=== PATIENT | female | born 1980 | race Caucasian/White ===

== ENCOUNTER 2017-10-19 19:57 | Inpatient (IN) | payer MEDICAID ==
[~2017-10-19] VITALS: Ht 162.6 cm; Wt 78.0 kg
[2017-10-19] MEDS ORDERED: LACTATED RINGER'S 1000 ML INJ 1,000 ML IV PRN (20:06)
[2017-10-19] MEDS ORDERED: MISOPROSTOL 100 MCG TAB VAGINAL PRN (20:15)
[2017-10-19] MEDS ORDERED: MINERAL OIL 10 ML VIAL TOPICAL PRN (20:15)
[2017-10-19] MEDS ORDERED: LIDOCAINE HCL 1% 50 ML VIAL INFIL PRN (20:15)
[2017-10-19] MEDS ORDERED: OXYTOCIN 30 UNITS-500ML PREMIX 500 ML IV ONE (20:15)
[2017-10-19] MEDS ORDERED: SODIUM CHLORIDE 0.9% FLUSH 10 ML FLUSH IV FLUSH PRN (20:15)
[2017-10-19] MEDS ORDERED: SODIUM CHLORID 0.9% 500 ML INJ 500 ML IV PRN (20:15)
[2017-10-19] MEDS ORDERED: CITRIC ACID-SODIUM CITRATE LIQ 30 ML UDC PO SCH (20:15)
[2017-10-19] MEDS ORDERED: LIDOCAINE HCL 1% 50 ML VIAL I-DERMAL PRN (20:15)
--- NOTE | 2017-10-19 20:21 | HHI.PR ---
ANALOG CIRCUIT DESIGNER Note Note Note placed from home, did not evaluate pt face to face, H&P dictated and pending traveling repair accountant S: N/A O: VS: BP 116/74, P 77, RR 18 , T 98.3 FHTs: 150s moderate variability, no decels, positive acceleration [place]: occasional contractions, lots of artifacts A/P 37 yo at 41w1d by L/15 here for IOL for late term gestation 1. IUP: Cat 1 tracing. - GBS pos and cephalic at most recent outpt visit. - Clinical EFW 7.5-8lbs, EFW (09/20) = 3003g (61%) - Posterior placenta. - male fetus. 2. IOL: For dates, BS unfavorable in the office, nursing to PV 25mcg miso q4h, Allow to eat if cat 1 after placement 3. IUGR: based on AC of 2% on 09/22. UA dop have been elevated at time as an outpatient but was UL of normal on 10/11. Had been receiving serial growths due to peripheral cord insertion and the IUGR was found. 4. GBS pos: severe PCN allergy, no susceptibilities done, will begin Vanc later in labor. 5. AMA: NIPS negative, normal AU. 6. Tobacco use: has been cutting down in Elan Ladd MD Oct 19, 2017 20:21
[2017-10-19] MEDS ORDERED: SODIUM CHLOR 0.9% 1000 ML INJ 1,000 ML IV PRN (20:26)
[2017-10-19] MEDS: SODIUM CHLORIDE 0.9% FLUSH 10 ML FLUSH IV FLUSH SCH (21:00)
[2017-10-19] MEDS: LACTATED RINGER'S 1000 ML INJ 1,000 ML IV SCH (21:00)
[2017-10-19 22:03] LABS: AUTOMATED NEUTROPHIL # 7.9 TH/MM3 (1.8-7.7); BASOPHIL % 0.4 % (0.0-2.0); EOSINOPHIL # 0.2 TH/MM3 (0-0.4); EOSINOPHIL % 1.4 % (0.0-4.0); HEMATOCRIT 32.9 % (35.0-46.0); HEMOGLOBIN 11.1 GM/DL (11.6-15.3); LYMPHOCYTE # 2.6 TH/MM3 (1.0-4.8); MEAN CELL VOLUME 92.3 FL (80.0-100.0); MEAN CORPUSCULAR HEMOGLOBIN 31.3 PG (27.0-34.0); MEAN CORPUSCULAR HGB CONC 33.9 % (32.0-36.0); MEAN PLATELET VOLUME 7.7 FL (7.0-11.0); MONO % 4.3 % (0.0-8.0); MONOCYTE # 0.5 TH/MM3 (0-0.9); NEUT % 70.9 % (16.0-70.0); PLATELET COUNT 363 TH/MM3 (150-450); RED BLOOD COUNT 3.56 MIL/MM3 (4.00-5.30); RED CELL DISTRIBUTION WIDTH 13.6 % (11.6-17.2); WHITE BLOOD COUNT 11.2 TH/MM3 (4.0-11.0)
[2017-10-19] MEDS ORDERED: MISOPROSTOL 25 MCG TAB VAGINAL PRN ×2 (22:15)
[2017-10-19] MEDS: MISOPROSTOL 25 MCG TAB VAGINAL PRN (22:28)
[2017-10-20] MEDS: MISOPROSTOL 25 MCG TAB VAGINAL PRN (02:15)
[2017-10-20] MEDS: LACTATED RINGER'S 1000 ML INJ 1,000 ML IV SCH (03:13)
[2017-10-20] MEDS ORDERED: fentaNYL 2MCG-BUPIV 0.125% INJ 150 ML EPIDURAL ONE (04:35)
[2017-10-20] MEDS ORDERED: CLINDAMYCIN 600 MG/NS PREMIX 50 ML IV SCH (05:00)
[2017-10-20] MEDS ORDERED: LIDOCAINE 1%/EPINEPHrine 1:200,000 PF SOLN 30 ML VIAL ONE (05:12)
[2017-10-20] MEDS ORDERED: LIDOCAINE 1.5%/EPINEPHrine 1:200,000 PF 5 ML AMP ONE (05:14)
[2017-10-20] MEDS ORDERED: OXYTOCIN 30 UNITS-500ML PREMIX 500 ML IV PRN ×2 (05:15→19:15)
[2017-10-20] MEDS ORDERED: ePHEDrine/NS 25 MG/5 ML SYRINGE IV PUSH PRN (06:00)
[2017-10-20] MEDS ORDERED: fentaNYL 2MCG-BUPIV 0.125% 150 ML EPIDURAL PRN (06:00)
[2017-10-20] MEDS ORDERED: NO SYSTEM NARCOTICS PRN (06:00)
[2017-10-20] MEDS ORDERED: VANCOMYCIN INJ 1 GM in SODIUM CHLORIDE 0.9% INJ 250 ML IV SCH (06:00)
[2017-10-20] MEDS ORDERED: DO NOT ADMINISTER ANTICOAGULANTS PRN (06:00)
--- NOTE | 2017-10-20 08:34 | MH ---
cc: Elan Ladd MD DATE OF ADMISSION: 10/19/2017 CHIEF COMPLAINT: Scheduled induction of labor. HISTORY OF PRESENT ILLNESS: This patient is a 37-year-old, G3, P0-0-2-0, who will be at 41 weeks and 1 day by her sure LMP consistent with a 15-week ultrasound with estimated due date of 10/11/2017 here today for induction of labor secondary to late term gestation. Any updates to her HPI will be added as an addendum on the day of her admission. has been complicated by advanced maternal age, anxiety, tobacco use and carpal tunnel syndrome. PAST MEDICAL HISTORY: Tobacco use and anxiety. MEDICATIONS: Klonopin 1 mg p.r.n. anxiety, Seroquel p.r.n. sleep, vitamins. ALLERGIES: ANAPHYLAXIS TO PENICILLIN. PAST SURGICAL HISTORY: Breast augmentation. FAMILY HISTORY: No pertinent positives. HOSPITAL RECEIVING CLERK HISTORY: LMP 01/04/2017. STDs, the patient denies. OB HISTORY: G3, P0-0-2-0. Elective terminations x 2. SOCIAL HISTORY: Tobacco use, denies alcohol or drug use. PHYSICAL EXAM: VITAL SIGNS: At the time of dictation, any updates will be added as an addendum. Weight 171, blood pressure 110/70. GENERAL: Alert, oriented x 3 resting comfortably in no acute distress. CARDIAC: Regular rate and rhythm. No murmurs, rubs or gallops. PULMONARY: Lungs are clear to auscultation bilaterally. No wheezes, crackles or rhonchi. ABDOMEN: Soft, gravid, nontender. Fundal height appropriate. : Normal external female genitalia. Cervix closed, thick, high, posterior, medium and soft. EXTREMITIES: No clubbing, cyanosis or edema. heart rate 146 via ultrasound. Ultrasound today, SHADI of 7.7, cephalic, posterior placenta, 8/8 BPP. LABORATORY DATA: GBS positive. No susceptibilities done. Blood type A positive. Antibody negative. Baseline hemoglobin 12.6. Varicella immune, rubella immune. VDRL nonreactive. Urine culture negative. Hepatitis B surface antigen negative. Gonorrhea and chlamydia negative. HIV negative. Urine drug screen negative. Sickle cell screen negative. TSH 1.35. Cystic fibrosis screen negative. Noninvasive screening negative. One-hour glucose 126. Repeat hemoglobin on 07/19/2017 is 10.8. ASSESSMENT AND PLAN: This patient is a 37-year-old, G3, P0-0-2-0, who will be at 41 weeks and 1 day by LMP consistent with 15-week ultrasound for induction of labor secondary to late term gestation. 1. Intrauterine : Will be placed on monitoring at time of arrival and any updates will be added as an addendum. -Cephalic by ultrasound as an outpatient the week prior to admission. GBS positive. Estimated weight 7-1/2 pounds. Male fetus. The plan is to breastfeed. Posterior placenta. 2. Induction of labor: Secondary to late term gestation, Galo score 2 unfavorable, will proceed with PV miso overnight and reassess in the morning. Will allow to eat if category 1 tracing after 1-2 hours of miso 3. Advanced maternal age: Normal anatomy. Noninvasive screening negative. 4. GBS positive. No susceptibility is done. Vancomycin for prophylaxis will be ordered. 5. Tobacco use. The patient cutting down, will offer nicotine patches if she desires as patient. 6. Anxiety, we will continue her Klonopin as needed. MD JYOTHI Pickard/JOSE , 12:45 PM , 01:39 PM MTDD
[2017-10-20] MEDS: SODIUM CHLORIDE 0.9% FLUSH 10 ML FLUSH IV FLUSH SCH (09:00)
[2017-10-20] MEDS ORDERED: VANCOMYCIN 1,000 MG/NS 250 ML IV SCH ×2 (09:00)
--- NOTE | 2017-10-20 09:20 | HHI.PR ---
LOCOMOTIVE ENGINEER DIESEL Note Note S: Doing well, having some pressure, fairly comfortable with her epidural. O: FHTs: 130s moderate variability, no decels, positive acceleration [place]: regular contractions. : Deferred, per nursing at 7 AM, 9-10 cm, fully effaced, -1-0 station A/P 37 yo at 41w2d by L/15 here for IOL for late term gestation 1. IUP: Cat 1 tracing. - GBS pos and cephalic by exam - Clinical EFW 7.5-8lbs, EFW (09/20) = 3003g (61%) - Posterior placenta. - male fetus. 2. IOL: For dates, s/p PV miso x2, SROM at 3am, has been changing without further augmentation. Anticipate vaginal delivery today. 3. GBS pos: severe PCN allergy, no susceptibilities done, will begin Vanc now, had received clindamycin per prior MD auricular detoxification specialist 4. AMA: NIPS negative, normal AU. 5. Tobacco use: has been cutting down in Elan Ladd MD Oct 20, 2017 09:20
[2017-10-20] MEDS ORDERED: OXYTOCIN 10 UNIT/ML AMP IV ONE (12:00)
[2017-10-20] MEDS ORDERED: PHENYLEPH/NS 1000 MCG/10 ML SYR IV ONE (12:00)
[2017-10-20] MEDS ORDERED: ONDANSETRON HCL 4 MG/2 ML VIAL IV ONE (12:00)
[2017-10-20] MEDS ORDERED: KETOROLAC TROMETHAMINE 30 MG/ML (IVP) VIAL IV PUSH ONE ×2 (12:00→14:15)
[2017-10-20] MEDS ORDERED: DEXAMETHASONE SOD PHOS 4 MG/ML VIAL IV ONE (12:00)
[2017-10-20] MEDS ORDERED: LACTATED RINGER'S 1000 ML INJ 1,000 ML IV ONE ×2 (12:00→12:04)
[2017-10-20] MEDS ORDERED: LIDOCAINE 2%/EPINEPHrine PF 1:200,000 20ML SDV OTHER ONE (12:00)
[2017-10-20] MEDS ORDERED: SODIUM CHLORIDE 0.9% IV STA (12:04)
[2017-10-20] MEDS ORDERED: GENTAMICIN IV STA (12:04)
[2017-10-20] MEDS ORDERED: CLINDAMYCIN INJ 900 MG in SODIUM CHLORIDE 0.9% INJ 100 ML IV STA (12:04)
--- NOTE | 2017-10-20 12:13 | HHI.PR ---
PROPERTY CONDITION ASSESSOR Note Note Pt care update: Combination of nursing and myself pushed for approximately 1.5-2 hours, the patient made it to 0 station without any further descent, a vacuum was applied after the bladder was emptied, pain control was found to be adequate, the patient was consented, and position confirmed, after 3 contraction with coordinated poles with the flat Kiwi vacuum there is no descent as well, and there were 0 pop offs. Based on the clinical assessment it was felt that there is a component of cephalopelvic disproportion and the patient was consented for as it was felt this was the most safe and appropriate route for delivery. The patient agreed, and had no further questions. I made the nursing staff aware of these plans and my desire to proceed within 30 minutes, to note there is a current in the back and may delay the case slightly but will likely proceed within 30 minutes ideally, will dose with gentamicin and clindamycin given penicillin allergy. Consent: The risks (which are relatively low and generally are viewed as acceptable for the above indications by ACOG), benefits, alternatives, expected outcomes, and risks of declining treatment were explained and discussed with the patient risks including but not limited to scalp laceration, retinal hemorrhages, brachial plexus injury, cephalohematoma formation, and subgaleal or intracranial hemorrhage, which typically are transient but can results in permanent neurological sequela. Maternal risk included but not limited to perineal laceration and failure of vacuum and potentially needed a . Elan Ladd MD Oct 20, 2017 12:13
[2017-10-20] MEDS ORDERED: PERC5TAB12 PO (12:22)
[2017-10-20] MEDS ORDERED: IBUP-232 PO (12:22)
[2017-10-20] MEDS ORDERED: LACTATED RINGER'S 1000 ML INJ 1,000 ML IV SCH ×2 (12:34→19:04)
[2017-10-20] MEDS ORDERED: MORPHINE SULFATE PF 5 MG/10 ML VIAL ONE (12:45)
[2017-10-20] MEDS ORDERED: ACETAMINOPHEN 1000 MG/100 ML 100 ML IV ONE (12:45)
--- NOTE | 2017-10-20 12:45 | PD.OB.DELI ---
Procedure Note Section Procedure Pre Op Diagnosis: (1) Arrested labor (2) Arrest of descent, delivered, current hospitalization (3) 41 weeks gestation of (4) Advanced maternal age (AMA) in (5) Group beta Strep positive Post Op Diagnosis: Performed by Elan Ladd Procedure: Primary Low Transverse Sec Indication for delivery: Other (arrest of descent) Previous condition: None (none) Informed consent obtained: For anesthesia, For procedure Confirmed correct: Patient, Procedure, Site Anesthesia: Epidural Medication prior to procedure: As documented in eMAR, Antibiotics, IV (gent / clinda pre op, vanc for GBS ppx) Monitoring during procedure: Blood pressure monitoring, Pulse oximetry Urinary catheter: Inserted using sterile technique, ml urine output (100 clear ) Sterile preparation: Duraprep Position: Supine with wedge to left side Operative Features Skin Incision: Pfannenstiel Uterine Incision: Low transverse w/knife / blunt ext Membranes Ruptured: Previously (spntaneous), Appearance of fluid (clear) Presentation: Occiput anterior, Vertex Delivery date: Oct 20, 2017 Delivery time: 13:08 Delivery of : Assisted (nursing vaginal hand from below), Uneventful Infant: Female One Minute : 8 Five Minute : 9 Status of infant: Viable Placenta delivered: Intact, Other (to disposal) Medications: Antibiotics, Oxytocin, Ergot derivatives (IM methergine x1) Estimated blood loss: 700, average Procedure tolerated: Well Maternal Complications: Other (none) Maternal Condition: Stable Baby Complications: Other (none) Condition: Stable Procedure in detail Findings: 1. viable male infants, normal anatomy 2. Uterine atony resolved with uterine massage, bolus Pitocin and 1 dose of IM methargen 3. Normal-appearing intra-abdominal anatomy, normal-appearing ovaries and fallopian tubes bilaterally. DVT ppx: SCDs during case Assistants: L&D OR Staff, Yuliya Mckeon MS-3 Full dictated report under dictation number: [id number] Elan Ladd MD Oct 20, 2017 12:45
[2017-10-20] MEDS ORDERED: METHYLERGONOVINE MALEATE 0.2 MG/ML VIAL ONE (13:12)
[2017-10-20] MEDS ORDERED: CITRIC ACID-SODIUM CITRATE LIQ 30 ML UDC PO SCH (13:45)
[2017-10-20] MEDS ORDERED: SODIUM CHLORIDE 0.9% FLUSH 10 ML FLUSH IV FLUSH PRN (14:15)
[2017-10-20] MEDS ORDERED: OXYTOCIN 30 UNITS-500ML PREMIX 500 ML IV ONE (14:15)
[2017-10-20] MEDS ORDERED: ONDANSETRON ODT 4 MG TAB PO PRN (14:15)
[2017-10-20] MEDS ORDERED: ACETAMINOPHEN 325 MG TAB PO PRN (14:15)
[2017-10-20] MEDS ORDERED: SIMETHICONE 80 MG CHEWABLE TAB PO PRN (14:15)
--- NOTE | 2017-10-20 14:26 | MP ---
cc: Elan Ladd MD DATE OF OPERATION: PREOPERATIVE DIAGNOSES: 1. Intrauterine at 41 weeks and 2 days. 2. Arrest of descent. 3. Failed vacuum delivery. 4. Group B streptococcus positive status. 5. Advanced maternal age. 6. Tobacco use. POSTOPERATIVE DIAGNOSES: 1. Intrauterine at 41 weeks and 2 days. 2. Arrest of descent. 3. Failed vacuum delivery. 4. Group B streptococcus positive status. 5. Advanced maternal age. 6. Tobacco use. 7. Status post delivery of viable infant via . 8. Cephalopelvic disproportion, would not attempt vaginal delivery for any future pregnancies. PROCEDURE PERFORMED: Primary low transverse section. SURGEON: Elan Ladd MD SENIOR RECEPTIONIST SURGEON: None. SENIOR RECEPTIONIST: Jayshree labor and delivery surgical staff and Yuliya Mckeon MS-3. FINDINGS: 1. Viable male infant at 1308, Apgars 8 and 9. Normal anatomy. The fetus was cephalic, OA position, not asynclitic or compound presentation. 2. Normal intra-abdominal anatomy, free of adhesions. Normal-appearing uterus, bilateral fallopian tubes and ovaries. Uterine atony resolved with uterine massage both Pitocin and 1 dose of IM Methergine. 3. Umbilical cord arterial venous gas is pending at the time of dictation. ESTIMATED BLOOD LOSS: 700 mL FLUID REPLACEMENT: 1500 mL Lactated Ringer's and Pitocin. URINE OUTPUT: 100 mL clear urine via Theodore. ANTIBIOTICS / MEDICATIONS: - Gentamicin 5 mg/kg and 900 mg IV clindamycin for surgical prophylaxis and the patient was on vancomycin for GBS prophylaxis. - Additional medications 0.2 mg IM Methergine x1. DVT PROPHYLAXIS: Sequential compression devices throughout the case. ANESTHESIA: Dosed epidural. SPECIMENS: Placenta to disposal. COUNTS: Correct x 2. TIMEOUT: Done and correct. DISPOSITION: Stable to PACU, then home. INDICATIONS: This patient is a 37-year-old, G3, P0,0,2,0, now P1,0,2,1, who presented for induction of labor at 41 weeks and 1 day. She received 2 doses of PV Misoprostol, spontaneously ruptured and progressed naturally to complete, for around 2 hours the nurse and myself pushed with the patient with little to no descent, a flat Kiwi vacuum was attempted. Please see separate note for consent and details, but there was little to no descent after 3 attempts with 0 pop-offs. At that point, it was felt appropriate and safest to proceed with a for delivery. The patient was consented for this. DESCRIPTION OF PROCEDURE: The patient was taken to the operating room and placed in supine position with a left lateral tilt. After anesthesia was found to be adequate, the abdomen was prepped and draped in sterile fashion. A Theodore was inserted. A Pfannenstiel incision was made and carried down to the fascia, which was opened and extended bilaterally with Vasquez scissors and dissected off the underlying rectus muscle superiorly and inferiorly with Vasquez scissors. The peritoneal cavity was entered digitally and retracted laterally. A bladder flap was made with Metzenbaum scissors in the lower uterine segment. A curvilinear incision was made in the lower uterine segment and extended digitally in a cephalocaudad fashion. A nurse from below used a sterile glove to elevate the head. Suction was broken with my hand inserted in the uterus with gentle upward pressure and the head was presented to the hysterotomy and with fundal pressure, the head was delivered with ease, followed by gentle downward and upward traction for the anterior and posterior shoulders, respectively. The torso and lower extremity followed with ease. Delayed cord clamping was allowed. Then the cord was clamped and cut and handed to the staff. The placenta was delivered with cord traction and fundal massage. The uterus was exteriorized and cleared free of clot and debris. The hysterotomy was closed with a double layer of 0 Vicryl, first locking from left to right, then imbricating layer from left to right for hemostasis. The uterus was returned to the abdomen and the pericolic gutters were irrigated. The hysterotomy was hemostatic and the fascia was closed from left to right with 0 Vicryl in a running, unlocked fashion. The subcutaneous tissue was irrigated and found to be hemostatic and closed and reapproximated with 2-0 Monocryl. The skin was closed with 3-0 Monocryl in a subcuticular fashion. A dressing was applied and the patient tolerated the procedure well. MD JYOTHI Pickard/MORA , 01:57 PM , 02:25 PM NIKKY
[2017-10-20] MEDS ORDERED: KETOROLAC TROMETHAMINE 30 MG/ML (IVP) VIAL ONE (14:46)
[2017-10-20] MEDS ORDERED: EPIDURAL-DIPHENHYDRAMINE HCL 50 MG/ML VIAL IV PUSH PRN (16:00)
[2017-10-20] MEDS ORDERED: EPIDURAL-NALOXONE HCL 0.4 MG/ML AMP IV PUSH PRN (16:00)
[2017-10-20] MEDS ORDERED: EPIDURAL-DO NOT ADMINISTER ANTICOAGULANTS PRN (16:00)
[2017-10-20] MEDS ORDERED: EPIDURAL-DIPHENHYDRAMINE HCL 50 MG CAP PO PRN (16:00)
[2017-10-20] MEDS ORDERED: EPIDURAL-NO SYSTEMIC NARCOTICS PRN (16:00)
[2017-10-20] MEDS: KETOROLAC TROMETHAMINE 30 MG/ML (IVP) VIAL IV PUSH SCH (20:00)
[2017-10-20 20:16] VITALS: BP 96/62; PULSE 74; RESP 19; TEMP 97.9
[2017-10-20] MEDS ORDERED: SODIUM CHLORIDE 0.9% FLUSH 10 ML FLUSH IV FLUSH SCH (21:00)
[2017-10-21 00:02] VITALS: BP 89/52; PULSE 70; RESP 18; TEMP 98.6
[2017-10-21] MEDS: oxyCODONE/ACETAMINOPHEN 5 MG/325 MG TAB PO PRN ×3 (04:13→20:14)
[2017-10-21] MEDS: DOCUSATE SODIUM 50 MG/SENNA 8.6 MG TAB PO PRN ×2 (04:14→20:14)
[2017-10-21 04:42] VITALS: BP 82/54; PULSE 72; RESP 19; TEMP 98.1
[2017-10-21 05:50] LABS: BASOPHIL % 0.2 % (0.0-2.0); EOSINOPHIL # 0.1 TH/MM3 (0-0.4); EOSINOPHIL % 0.4 % (0.0-4.0); HEMATOCRIT 24.7 % (35.0-46.0); HEMOGLOBIN 8.4 GM/DL (11.6-15.3); LYMPH % 14.7 % (9.0-44.0); LYMPHOCYTE # 2.2 TH/MM3 (1.0-4.8); MEAN CELL VOLUME 92.8 FL (80.0-100.0); MEAN CORPUSCULAR HEMOGLOBIN 31.4 PG (27.0-34.0); MEAN CORPUSCULAR HGB CONC 33.9 % (32.0-36.0); MEAN PLATELET VOLUME 7.9 FL (7.0-11.0); MONO % 3.8 % (0.0-8.0); MONOCYTE # 0.6 TH/MM3 (0-0.9); NEUT % 80.9 % (16.0-70.0); PLATELET COUNT 290 TH/MM3 (150-450); RED BLOOD COUNT 2.66 MIL/MM3 (4.00-5.30); RED CELL DISTRIBUTION WIDTH 13.8 % (11.6-17.2); WHITE BLOOD COUNT 14.8 TH/MM3 (4.0-11.0)
[2017-10-21] MEDS: KETOROLAC TROMETHAMINE 30 MG/ML (IVP) VIAL IV PUSH SCH ×4 (06:07→16:50)
--- NOTE | 2017-10-21 08:47 | HHI.OB ---
Subjective Post Operative Day: 1 Remarks tired but doing well ambulating and catheter out Objective Vitals/I&O Vital Signs Date Time Temp Pulse Resp B/P (MAP) Pulse Ox O2 Delivery O2 Flow Rate FiO2 10/21/17 04:42 98.1 72 19 82/54 (63) 10/21/17 00:02 98.6 70 18 89/52 (64) 10/20/17 20:16 97.9 74 19 96/62 (73) Result Diagram: 10/21/17 0429 Objective Remarks GENERAL: Well-nourished, well-developed patient. CARDIOVASCULAR: Regular rate and rhythm without murmurs, gallops, or rubs. RESPIRATORY: Breath sounds equal bilaterally. No accessory muscle use. ABDOMEN/GI: Abdomen soft, non-tender, bowel sounds present. bandage Clean, dry and intact. Fundus: Firm, non-tender at umbilicus. GENITOURINARY: Light to moderate bleeding. EXTREMITIES: No cyanosis or edema, non-tender, without signs of DVT. Medications and IVs Current Medications Medications (Trade) Dose Ordered Sig/Lin Route Start Time Stop Time Status Last Admin (Toradol Inj) 15 mg Q6HR IV PUSH 10/20/17 20:00 10/21/17 19:59 10/21/17 06:07 Lactated Ringer's 1,000 ml @ 100 mls/hr Q10H IV 10/20/17 19:04 10/21/17 15:03 10/20/17 22:00 Oxytocin 500 ml @ 100 mls/hr UNSCH X1 PRN IV 10/20/17 19:15 10/21/17 19:14 (NS Flush) 2 ml BID IV FLUSH 10/20/17 21:00 (NS Flush) 2 ml UNSCH PRN IV FLUSH 10/20/17 14:15 (Mylicon Chew) 80 mg QID PRN PO 10/20/17 14:15 (Tylenol) 650 mg Q6H PRN PO 10/20/17 14:15 (Motrin) 600 mg Q6H PRN PO 10/20/17 14:15 (Percocet 5-325 Mg) 1 tab Q4H PRN PO 10/20/17 14:15 (Percocet 5-325 Mg) 2 tab Q4H PRN PO 10/20/17 14:15 10/21/17 04:13 (Jennifer-Colace) 2 tab Q12H PRN PO 10/20/17 14:15 10/21/17 04:14 (M-M-R Ii Inj) 0.5 ml ONCE ONCE SQ 10/21/17 16:00 10/21/17 16:01 (Boostrix Inj) 0.5 ml ONCE ONCE IM 10/21/17 16:00 10/21/17 16:01 (Zofran Odt) 4 mg Q6H PRN PO 10/20/17 14:15 ([facility] [place] Nursing Information) NO SYSTEMIC NARCOTICS TO BE GIVEN FO... UNSCH PRN .XX 10/20/17 16:00 10/21/17 15:59 (Narcan Inj) 0.4 mg UNSCH PRN IV PUSH 10/20/17 16:00 10/21/17 15:59 (Benadryl Inj) 25 mg Q6H PRN IV PUSH 10/20/17 16:00 10/21/17 15:59 (Benadryl) 50 mg Q6H PRN PO 10/20/17 16:00 10/21/17 15:59 ([facility] [place] Nursing Information) ALL NURSING DEPARTMENTS UNSCH PRN .XX 10/20/17 16:00 10/21/17 15:59 Assessment/Plan Assessment and Plan anemia on post op day will give venifer anticipate routine recovery My Vogel MD Oct 21, 2017 08:47
[2017-10-21] MEDS ORDERED: IRON SUCROSE INJ 200 MG in SODIUM CHLORIDE 0.9% INJ 100 ML IV ONE (09:00)
[2017-10-21 12:05] LABS: HEMATOCRIT 22.9 % (35.0-46.0); HEMOGLOBIN 7.8 GM/DL (11.6-15.3); MEAN CELL VOLUME 92.8 FL (80.0-100.0); MEAN CORPUSCULAR HEMOGLOBIN 31.5 PG (27.0-34.0); MEAN CORPUSCULAR HGB CONC 33.9 % (32.0-36.0); MEAN PLATELET VOLUME 7.6 FL (7.0-11.0); PLATELET COUNT 313 TH/MM3 (150-450); RED BLOOD COUNT 2.47 MIL/MM3 (4.00-5.30); RED CELL DISTRIBUTION WIDTH 13.9 % (11.6-17.2); WHITE BLOOD COUNT 13.4 TH/MM3 (4.0-11.0)
[2017-10-21] MEDS ORDERED: MEASLES, MUMPS, RUBELLA VACCINE 0.5 ML VIAL SQ ONE (16:00)
[2017-10-21] MEDS ORDERED: DIPHTH/TETANUS/ACEL PERTUSSIS (BOOSTER) 0.5 ML VIAL/PFS IM ONE (16:00)
[2017-10-21] MEDS: IBUPROFEN 600 MG TAB PO PRN (16:37)
[2017-10-22 06:41] LABS: AUTOMATED NEUTROPHIL # 6.6 TH/MM3 (1.8-7.7); BASOPHIL % 0.4 % (0.0-2.0); EOSINOPHIL # 0.2 TH/MM3 (0-0.4); EOSINOPHIL % 2.4 % (0.0-4.0); HEMATOCRIT 21.9 % (35.0-46.0); HEMOGLOBIN 7.6 GM/DL (11.6-15.3); LYMPHOCYTE # 2.6 TH/MM3 (1.0-4.8); MEAN CELL VOLUME 92.5 FL (80.0-100.0); MEAN CORPUSCULAR HEMOGLOBIN 32.1 PG (27.0-34.0); MEAN CORPUSCULAR HGB CONC 34.7 % (32.0-36.0); MEAN PLATELET VOLUME 7.5 FL (7.0-11.0); MONOCYTE # 0.6 TH/MM3 (0-0.9); NEUT % 65.2 % (16.0-70.0); PLATELET COUNT 293 TH/MM3 (150-450); RED BLOOD COUNT 2.37 MIL/MM3 (4.00-5.30); RED CELL DISTRIBUTION WIDTH 13.8 % (11.6-17.2); WHITE BLOOD COUNT 10.1 TH/MM3 (4.0-11.0)
[2017-10-22] MEDS: IBUPROFEN 600 MG TAB PO PRN ×4 (08:15→21:59)
[2017-10-22] MEDS: oxyCODONE/ACETAMINOPHEN 5 MG/325 MG TAB PO PRN ×4 (08:15→21:59)
--- NOTE | 2017-10-22 09:21 | HHI.OB ---
Subjective Post Operative Day: 2 Remarks achy and sore nursing baby on lights Objective Result Diagram: 10/22/17 0606 Objective Remarks GENERAL: Well-nourished, well-developed patient. CARDIOVASCULAR: Regular rate and rhythm without murmurs, gallops, or rubs. RESPIRATORY: Breath sounds equal bilaterally. No accessory muscle use. ABDOMEN/GI: Abdomen soft, non-tender, bowel sounds present. bandage Clean, dry and intact. Fundus: Firm, non-tender at umbilicus. GENITOURINARY: Light to moderate bleeding. EXTREMITIES: No cyanosis or edema, non-tender, without signs of DVT. Medications and IVs Current Medications Medications (Trade) Dose Ordered Sig/Lin Route Start Time Stop Time Status Last Admin (NS Flush) 2 ml BID IV FLUSH 10/20/17 21:00 10/21/17 09:20 (NS Flush) 2 ml UNSCH PRN IV FLUSH 10/20/17 14:15 (Mylicon Chew) 80 mg QID PRN PO 10/20/17 14:15 (Tylenol) 650 mg Q6H PRN PO 10/20/17 14:15 (Motrin) 600 mg Q6H PRN PO 10/20/17 14:15 10/22/17 08:15 (Percocet 5-325 Mg) 1 tab Q4H PRN PO 10/20/17 14:15 10/22/17 00:00 (Percocet 5-325 Mg) 2 tab Q4H PRN PO 10/20/17 14:15 10/22/17 08:15 (Jennifer-Colace) 2 tab Q12H PRN PO 10/20/17 14:15 10/21/17 20:14 (Zofran Odt) 4 mg Q6H PRN PO 10/20/17 14:15 Assessment/Plan Assessment and Plan anemia on post op day will give venifer anticipate routine recovery POD 2 fatigued did receive venofir incision healing well anticipate discharge Tuesday My Vogel MD Oct 22, 2017 09:21
[2017-10-22] MEDS: DOCUSATE SODIUM 50 MG/SENNA 8.6 MG TAB PO PRN (15:32)
[2017-10-22 20:09] VITALS: BP 109/65; PULSE 76; RESP 20; TEMP 98.5
[2017-10-23] MEDS: oxyCODONE/ACETAMINOPHEN 5 MG/325 MG TAB PO PRN ×2 (07:31→12:54)
[2017-10-23] MEDS: IBUPROFEN 600 MG TAB PO PRN ×2 (07:31→13:59)
--- NOTE | 2017-10-23 12:21 | HHI.OB ---
Subjective Post Operative Day: 3 Remarks feling better pumping well incision and lower pelvis chicken tender Objective Vitals/I&O Vital Signs Date Time Temp Pulse Resp B/P (MAP) Pulse Ox O2 Delivery O2 Flow Rate FiO2 10/22/17 20:09 98.5 76 20 109/65 (80) Result Diagram: 10/22/17 0606 Objective Remarks GENERAL: Well-nourished, well-developed patient. CARDIOVASCULAR: Regular rate and rhythm without murmurs, gallops, or rubs. RESPIRATORY: Breath sounds equal bilaterally. No accessory muscle use. ABDOMEN/GI: Abdomen soft, non-tender, bowel sounds present. bandage Clean, dry and intact. Fundus: Firm, non-tender at umbilicus. GENITOURINARY: Light to moderate bleeding. EXTREMITIES: No cyanosis or edema, non-tender, without signs of DVT. Medications and IVs Current Medications Medications (Trade) Dose Ordered Sig/Lin Route Start Time Stop Time Status Last Admin (NS Flush) 2 ml BID IV FLUSH 10/20/17 21:00 10/21/17 09:20 (NS Flush) 2 ml UNSCH PRN IV FLUSH 10/20/17 14:15 (Mylicon Chew) 80 mg QID PRN PO 10/20/17 14:15 10/22/17 19:41 (Tylenol) 650 mg Q6H PRN PO 10/20/17 14:15 (Motrin) 600 mg Q6H PRN PO 10/20/17 14:15 10/23/17 07:31 (Percocet 5-325 Mg) 1 tab Q4H PRN PO 10/20/17 14:15 10/23/17 07:31 (Percocet 5-325 Mg) 2 tab Q4H PRN PO 10/20/17 14:15 10/22/17 08:15 (Jennifer-Colace) 2 tab Q12H PRN PO 10/20/17 14:15 10/22/17 15:32 (Zofran Odt) 4 mg Q6H PRN PO 10/20/17 14:15 Assessment/Plan Assessment and Plan anemia on post op day will give venifer anticipate routine recovery POD 2 fatigued did receive venofir incision healing well anticipate discharge Tuesday POD 3 better energy incision healing discharge post bilirubin eval with infant counseled on circumcision -- severe adhesions removed My Vogel MD Oct 23, 2017 12:21
[2017-10-23] MEDS ORDERED: OXYC1TAB63 PO (12:22)
--- NOTE | 2017-10-23 12:22 | HHI.DCPOC ---
Discharge Care Plan Report Symptoms to Your Doctor -Temperature above 100.5 degrees -Redness, of incision or excessive or foul smelling drainage -Unusual pain or calf pain -Increased vaginal bleeding -Painful or difficulty urinating -Feelings of extreme sadness or anxiety after 2 weeks Goals to Promote Your Health * To prevent worsening of your condition and complications * To maintain your health at the optimal level Directions to Meet Your Goals Take your medications as prescribed Follow your dietary instruction Follow activity as directed Ensure plenty of rest for recovery Drink fluids for hydration Keep your appointments as scheduled Take your immunizations and boosters as scheduled If your symptoms worsen call your PCP, if no PCP go to Urgent Care Center or Emergency Room Smoking is Dangerous to Your Health. Avoid second hand smoke Call the 24-hour crisis hotline for domestic abuse at My Vogel MD Oct 23, 2017 12:22
== END 2017-10-23 16:03 | disposition home or self-care (01) | DRG 765 ==
LOC: H2EB 19:57 → H1EA 10-20 15:21
PROVIDERS: ADMIT Obstetrics & Gynecology; ATTEND Obstetrics & Gynecology
PROC: 3E0P7VZ Introduction of Hormone into Female Reproductive, Via Natural or Artificial Opening (ICD-10-PCS; 2017-10-19)
PROC: 10D00Z1 Extraction of Products of Conception, Low, Open Approach (ICD-10-PCS; principal; 2017-10-20)
PROC: 3E0R3BZ Introduction of Anesthetic Agent into Spinal Canal, Percutaneous Approach (ICD-10-PCS; 2017-10-20)
PROC: 00HU33Z Insertion of Infusion Device into Spinal Canal, Percutaneous Approach (ICD-10-PCS; 2017-10-20)
PROC: 3E033GC Introduction of Other Therapeutic Substance into Peripheral Vein, Percutaneous Approach (ICD-10-PCS; 2017-10-21)
DX: O48.0 Post-term pregnancy (principal); O99.354 Diseases of the nervous system complicating childbirth; G56.00 Carpal tunnel syndrome, unspecified upper limb; O99.344 Other mental disorders complicating childbirth; F41.9 Anxiety disorder, unspecified; O99.334 Smoking (tobacco) complicating childbirth; F17.200 Nicotine dependence, unspecified, uncomplicated; O99.824 Streptococcus B carrier state complicating childbirth; O62.1 Secondary uterine inertia; O66.5 Attempted application of vacuum extractor and forceps; O33.9 Maternal care for disproportion, unspecified; O62.2 Other uterine inertia; O75.89 Other specified complications of labor and delivery; O90.81 Anemia of the puerperium; D64.9 Anemia, unspecified; Z37.0 Single live birth; Z3A.41 41 weeks gestation of pregnancy; Z98.82 Breast implant status; Z88.0 Allergy status to penicillin
CPT/HCPCS: 80307; 82805; 85025; 85027; 86900; 86901; 90715; G0481; J0131; J1100; J1580; J1756; J1885; J2210; J2274; J2370; J2405; J2590; J3010; J3370; J7120